=== PATIENT | female | born 1990 | race Caucasian/White ===

== ENCOUNTER 2024-04-26 14:56 | Emergency (ER) | payer MEDICAID ==
[~2024-04-26] VITALS: Ht 167.6 cm; Wt 127.0 kg
[2024-04-26 15:08] VITALS: BP 132/84; PULSE 83; RESP 18; TEMP 98.7; O2SAT 100
[2024-04-26 16:58] LABS: BASOPHILS # (AUTO) 0.1 K/uL (0.00-0.22); BASOPHILS % (AUTO) 0.8 % (0.0-2.0); EOSINOPHILS # (AUTO) 0.2 K/uL (0-0.4); EOSINOPHILS % (AUTO) 2.6 % (0.0-4.0); HEMOGLOBIN 10.9 g/dL (12.0-16.0); LYMPHOCYTES # (AUTO) 1.9 K/uL (2.5-16.5); LYMPHOCYTES % (AUTO) 24.1 % (20.5-51.1); MEAN CORPUSCULAR HEMOGLOBIN 23 pg (27-31); MEAN CORPUSCULAR HGB CONC 32 g/dL (33-37); MEAN CORPUSCULAR VOLUME 72.5 fL (80-94); MONOCYTES # (AUTO) 0.4 K/uL (0.8-1.0); MONOCYTES % (AUTO) 5.1 % (1.7-9.3); NEUTROPHILS # (AUTO) 5.4 K/uL (1.8-7.7); NEUTROPHILS % (AUTO) 67.4 % (42.2-75.2); PLATELET COUNT (AUTO) 441 K/uL (140-450); RED BLOOD CELL COUNT(AUTO) 4.69 MIL/uL (4.20-5.40); RED CELL DISTRIBUTION WIDTH 18.7 % (11.6-13.7)
[2024-04-26 17:52] LABS: BILIRUBIN,URINE NEGATIVE (NEGATIVE); BLOOD, URINE 3+ (NEGATIVE); COLOR,URINE YELLOW (YELLOW); LEUKOCYTE ESTERASE ,URINE 1+ (NEGATIVE); NITRITE, URINE NEGATIVE (NEGATIVE); PROTEIN,URINE NEGATIVE (NEGATIVE); UGLUCOSE NEGATIVE (NEGATIVE); UROBILINOGEN,URINE 0.2 EU/dL (0.2 - 1)
[2024-04-26 17:54] LABS: APPEARANCE,URINE SLIGHTLY HAZY (CLEAR)
[2024-04-26] MEDS ORDERED: [UNRECOGNIZED DRUG - CODE] PO (18:00)
[2024-04-26] MEDS ORDERED: [UNRECOGNIZED DRUG - CODE] PO (18:00)
[2024-04-26 18:01] LABS: WBC,URINE 0-5 /HPF (0-5)
[2024-04-26 18:02] LABS: BACTERIA,URINE 1+ /HPF (None Seen); MUCUS,URINE None Seen /LPF (None Seen); SQUAMOUS EPITHELIAL CELL,UR 4-10 (MOD) /LPF (0-3 (FEW))
[2024-04-26 18:21] VITALS: BP 134/72; PULSE 69; RESP 16; TEMP 98; O2SAT 99
[2024-04-28] MEDS ORDERED: [UNRECOGNIZED DRUG - CODE] PO (17:47)
[2024-04-28] MEDS ORDERED: [UNRECOGNIZED DRUG - CODE] PO (17:47)
[2024-04-29] MEDS ORDERED: [UNRECOGNIZED DRUG - CODE] PO (12:54)
[2024-04-29] MEDS ORDERED: [UNRECOGNIZED DRUG - CODE] PO (14:02)
== END 2024-04-26 18:21 | disposition home or self-care (01) ==
LOC: MED 14:56
DX: O03.4 Incomplete spontaneous abortion without complication (principal); O36.4XX0 Maternal care for intrauterine death, not applicable or unspecified; Z3A.08 8 weeks gestation of pregnancy; Z98.890 Other specified postprocedural states; Z79.899 Other long term (current) drug therapy
CPT/HCPCS: 36415; 76817; 81001; 81025; 84702; 85025; 86900; 86901; 87086; 99284